=== PATIENT | male | born 1990 | race Caucasian/White ===

== ENCOUNTER 2022-05-13 12:58 | Emergency (ER) | payer OTHER ==
[2022-05-13 13:24] VITALS: BP 140/77; PULSE 70; RESP 18; TEMP 98.4
--- NOTE | 2022-05-13 15:16 | US ---
EXAMINATION TYPE: US scrotum with doppler. Grayscale and color Doppler Duplex imaging performed of wilmer holley scrotum. DATE OF EXAM: 05/13/2022 COMPARISON: NONE CLINICAL HISTORY: pain. Patient states having left teste lump x many years. Within the last 3 months , it has become bigger. At the end of the exam, technologist had patient point to lump area and mult iple images were taken. EXAM MEASUREMENTS: TESTICLES: Right Testicle: 4.8 x 3.7 x 3.1 cm Left Testicle: 4.5 x 3.5 x 3.0 cm EPIDIDYMIS HEAD: Right Epididymis: 1.3 x 0.7 cm Left Epididymis: 1.3 x 0.7 cm Doppler performed to assess for testicular vascularity; good bilateral color flow and waveforms are s een. There is no evidence of testicular torsion. Presence of hydroceles: Small bilateral Presence of varicoceles: no IMPRESSION: Small bilateral pleural effusions without distinct lesion.
--- NOTE | 2022-05-13 16:16 | ED ---
Male Urogenital HPI - General Chief complaint: Urogenital Stated complaint: Bump Time Seen by Provider: 05/13/22 16:04 Source: patient Mode of arrival: ambulatory Limitations: no limitations - Related Data Allergies Allergy/AdvReac Type Severity Reaction Status Date / Time erythromycin base Allergy Rash/Hives Verified 05/13/22 13:21 Penicillins Allergy Rash/Hives Verified 05/13/22 13:21 Review of Systems ROS Statement: Those systems with pertinent positive or pertinent negative responses have been documented in the HPI. ROS Other: All systems not noted in ROS Statement are negative. Past Medical History Past Medical History: No Reported History History of Any Multi-Drug Resistant Organisms: None Reported Past Surgical History: No Surgical Hx Reported Past Psychological History: No Psychological Hx Reported Smoking Status: Former smoker Past Alcohol Use History: None Reported Past Drug Use History: None Reported General Exam Limitations: no limitations Course Vital Signs 05/13/22 13:21 Temperature 98.4 F Pulse Rate 70 Respiratory 18 Rate Blood Pressure 140/77 O2 Sat by Pulse 99 Oximetry Disposition Clinical Impression: Testicular swelling, Hydrocele Disposition: HOME SELF-CARE Condition: Good Instructions (If sedation given, give patient instructions): Testicular Self- examination (ED) Additional Instructions: We did not find any significant abnormalities on your testicular ultrasound. Please follow up with the urologist if any further concerning symptoms occur. Is patient prescribed a controlled substance at d/c from ED?: No Referrals: None,Stated [Primary Care Provider] - 1-2 days Riaz Stevenson MD [STAFF PHYSICIAN] - As Soon As Possible Time of Disposition: 16:14
== END 2022-05-13 16:27 | disposition home or self-care (01) ==
LOC: EC 12:58
DX: N43.3 Hydrocele, unspecified (principal); N50.89 Other specified disorders of the male genital organs; Z87.891 Personal history of nicotine dependence; Z88.0 Allergy status to penicillin; Z88.1 Allergy status to other antibiotic agents
CPT/HCPCS: 76870; 93975

== ENCOUNTER 2022-06-24 05:47 | Day surgery (SDC) | payer OTHER ==
[2022-06-20 12:22] VITALS: BMI 22.1
[~2022-06-24 05:47] MED LIST: ACETAMINOPHEN TAB 500 MG TAB PO PRN; HEPARIN SODIUM,PORCINE/PF 5,000 UNIT/0.5 ML SYRINGE SQ PRN
[2022-06-24] MEDS ORDERED: LACTATED RINGERS 1,000 ML IV SCH (05:58)
[2022-06-24] MEDS ORDERED: DEXAMETHASONE SOD PHOSPHATE 4 MG/ML 1 ML VIAL IV ONE (05:58)
[2022-06-24] MEDS ORDERED: ONDANSETRON 4 MG/2 ML VIAL IVP ONE (05:58)
[2022-06-24] MEDS ORDERED: LIDOCAINE 1% (10MG/ML) FOR IV START INTRADERMA ONE (06:45)
[2022-06-24] MEDS ORDERED: GLYCOPYRROLATE 0.2 MG/ML 2 ML VIAL ONE (07:48)
[2022-06-24] MEDS ORDERED: KETAMINE 10 MG/ML 20 ML VIAL ONE (07:48)
[2022-06-24] MEDS ORDERED: fentaNYL (PF) 50 MCG/ML 2 ML AMP ONE (07:48)
[2022-06-24] MEDS ORDERED: PROPOFOL 10 MG/ML 20 ML VIAL IV ONE (07:48)
[2022-06-24] MEDS ORDERED: NEOSTIGMINE 1 MG/ML 10 ML VIAL ONE (07:48)
[2022-06-24] MEDS ORDERED: LIDOCAINE 4% LTA KIT (4 ML) TOPICAL ONE (07:48)
[2022-06-24] MEDS ORDERED: MIDAZOLAM 2 MG/2 ML VIAL ONE (07:48)
[2022-06-24] MEDS ORDERED: LIDOCAINE 2% INJ 20 MG/ML (2 ML VIAL) ONE (07:48)
[2022-06-24] MEDS ORDERED: SUCCINYLCHOLINE CHLORIDE 200 MG/10 ML VIAL IV ONE (07:48)
[2022-06-24] MEDS ORDERED: ROCURONIUM 10 MG/ML (5 ML VIAL) IV ONE (07:48)
[2022-06-24] MEDS ORDERED: BUPIVACAIN-EPI 0.25%-1:200,000 30 ML VIAL SQ ONE (08:10)
--- NOTE | 2022-06-24 08:47 | P.GSHP ---
History of Present Illness H&P Date: 06/24/22 Chief Complaint: Left inguinal hernia Is a 32-year-old male who's developed a left inguinal hernia. Patient presents today for laparoscopic robotic-assisted repair. Past Medical History Past Medical History: No Reported History History of Any Multi-Drug Resistant Organisms: None Reported Past Surgical History: No Surgical Hx Reported Additional Past Surgical History / Comment(s): tooth extractions Past Anesthesia/Blood Transfusion Reactions: No Reported Reaction Additional Past Anesthesia/Blood Transfusion Reaction / Comment(s): "woke in the middle of tooth extractions" Past Psychological History: No Psychological Hx Reported Smoking Status: Former smoker Past Alcohol Use History: None Reported Past Drug Use History: None Reported - Past Family History Mother Family Medical History: No Reported History Medications and Allergies Home Medications Medication Instructions Recorded Confirmed Type No Known Home Medications 06/20/22 06/24/22 History Allergies Allergy/AdvReac Type Severity Reaction Status Date / Time amoxicillin Allergy Anaphylaxis Verified 06/24/22 06:23 erythromycin base Allergy Anaphylaxis Verified 06/24/22 06:23 Penicillins Allergy Anaphylaxis Verified 06/24/22 06:23 Surgical - Exam Vital Signs Temp Pulse Resp BP Pulse Ox 98.1 F 65 16 117/86 99 06/24/22 06:22 06/24/22 06:22 06/24/22 06:22 06/24/22 06:22 06/24/22 06:22 - General well developed, well nourished, no distress - Eyes PERRL - ENT normal pinna - Neck no masses - Respiratory normal expansion - Cardiovascular Rhythm: regular - Abdomen Abdomen: soft, non tender Hernia: inguinal (Left inguinal hernia) Assessment and Plan Assessment: Left inguinal hernia. We'll perform laparoscopic robotic-assisted repair.
--- NOTE | 2022-06-24 08:49 | P.OP ---
Date of Procedure: 06/24/22 Preoperative Diagnosis: Left inguinal hernia Postoperative Diagnosis: Left inguinal hernia Procedure(s) Performed: Laparoscopic robotic-assisted repair of left inguinal hernia Excision of cord lipoma Transversus abdominis plane block Anesthesia: MARY ANN Surgeon: Gavin Pittman Estimated Blood Loss (ml): 5 Pathology: other (Cord lipoma) Condition: stable Disposition: PACU Description of Procedure: MThe patient's placed on the operating table in the supine position. The patient received general anesthesia. The patient's abdomen was prepped and draped in usual sterile fashion. The skin was anesthetized 1% local Xylocaine at the incision sites. Using an 11 blade a skin incision was made at the umbilicus. The fascia was grasped with a Florencio and then the peritoneal cavity was entered with the Veress needle. Position of the Veress needle was confirmed with a positive drop test. After adequate insufflation a 5 mm trocar was placed into the peritoneal cavity. The Laparoscope was placed the peritoneal cavity. And a robotic 8 mm trocar was placed in the right lateral position and then another 8 mm robotic trochars placed in the left lateral position. The original 5 mm trocar was exchanged for a 12 mm trocar. A four-quadrant transversus abdominis plane block was performed 1% local Xylocaine. The patient was placed in reverse Trendelenburg and then the patient was docked to the robot. Next the peritoneum over top of the hernia was incised and then using blunt and sharp dissection and electrocautery the hernia sac was dissected free from the floor of the inguinal canal. The cord lipoma was dissected free and sent to pathology. The hernia sac was completely reduced into the peritoneal cavity. And then using the Pro aircraft fuselage framer mesh the hernia was repaired. The peritoneum was then sutured with 20V lock suture. The patient was then undocked the robot. The needle was withdrawn from the peritoneal cavity. The umbilical trocar site was closed with 0 Ethibond suture. The skin was closed interrupted 3-0 Monocryl suture. Dermabond dressing was applied. Patient was sent to recovery in stable condition.
[2022-06-24 08:58] VITALS: TEMP 96.9
[2022-06-24] MEDS: HYDROmorphone 0.5 MG/0.5 ML SYRINGE IVP PRN ×3 (09:19→09:44)
[2022-06-24 09:59] VITALS: RESP 16
[2022-06-24 10:16] VITALS: BP 123/70; PULSE 69
== END 2022-06-24 11:45 | disposition home or self-care (01) ==
LOC: OR 05:47
PROVIDERS: ATTEND Surgery
DX: K40.90 Unilateral inguinal hernia, without obstruction or gangrene, not specified as recurrent (principal); Z87.891 Personal history of nicotine dependence; Z98.890 Other specified postprocedural states; Z88.0 Allergy status to penicillin; Z88.1 Allergy status to other antibiotic agents
CPT/HCPCS: 88304; 49650; 55559; C1781; J2250; J0330; J1100; J2710; J0690; J2405; J3010; J2704; J1170; J1644; J2001

== ENCOUNTER 2023-03-03 07:13 | Day surgery (SDC) | payer OTHER ==
[~2023-03-03 07:13] MED LIST changes: +DEXAMETHASONE SOD PHOSPHATE 4 MG/ML 1 ML VIAL IV ONE; +LIDOCAINE 1% (10MG/ML) FOR IV START INTRADERMA PRN; +MIDAZOLAM 2 MG/2 ML VIAL IV PRN; +ONDANSETRON 4 MG/2 ML VIAL IVP ONE
[2023-03-03] MEDS: LACTATED RINGERS 1,000 ML IV SCH ×2 (08:11→10:24)
[2023-03-03] MEDS ORDERED: CLINDAMYCIN 600 MG in DEXTROSE 5% IN WATER 50 ML IVPB STA ×2 (08:34)
[2023-03-03 08:44] LABS: Glucose,Whole Blood 94 mg/dL (70-110)
[2023-03-03] MEDS ORDERED: GLYCOPYRROLATE 0.2 MG/ML 2 ML VIAL ONE (08:48)
[2023-03-03] MEDS ORDERED: ROCURONIUM 10 MG/ML (5 ML VIAL) IV ONE (08:48)
[2023-03-03] MEDS ORDERED: PROPOFOL 10 MG/ML 20 ML VIAL IV ONE (08:48)
[2023-03-03] MEDS ORDERED: KETAMINE 10 MG/ML 20 ML VIAL ONE (08:48)
[2023-03-03] MEDS ORDERED: KETOROLAC 15 MG/ML 1 ML VIAL ONE (08:48)
[2023-03-03] MEDS ORDERED: LIDOCAINE 2% INJ 20 MG/ML (2 ML VIAL) ONE (08:48)
[2023-03-03] MEDS ORDERED: fentaNYL (PF) 50 MCG/ML 2 ML AMP ONE (08:48)
[2023-03-03] MEDS ORDERED: MIDAZOLAM 2 MG/2 ML VIAL ONE (08:48)
[2023-03-03] MEDS ORDERED: NEOSTIGMINE 1 MG/ML 10 ML VIAL ONE (08:48)
[2023-03-03] MEDS ORDERED: SUCCINYLCHOLINE CHLORIDE 200 MG/10 ML VIAL IV ONE (08:48)
[2023-03-03] MEDS ORDERED: BUPIVACAINE (PF) 0.25% 30 ML VIAL SQ ONE (09:08)
--- NOTE | 2023-03-03 09:44 | P.OP ---
Date of Procedure: 03/03/23 Preoperative Diagnosis: Recurrent left inguinal hernia Postoperative Diagnosis: Recurrent left inguinal hernia Procedure(s) Performed: Open repair of left inguinal hernia with Prolene mesh Anesthesia: MARY ANN Surgeon: Gavin Pittman Estimated Blood Loss (ml): 5 Pathology: none sent Condition: stable Disposition: PACU Description of Procedure: DESCRIPTION OF PROCEDURE: The patient was placed in the supine position after receiving adequate anesthesia. Patients groin was prepped and draped in the usual sterile fashion. A standard hernia incision was made and the subcutaneous tissues were divided with electrocautery. The fascia of the external oblique was exposed. A chelsie the fascia was made with #15 blade. The fascia was then opened with pair of Metzenbaum scissors. A Weitlaner retractor was placed in the wound and the cord structures were grasped and dis sected free from the inguinal canal. A rubber Roseline drain was placed around the cord structures. The hernial sac was seen on the anterior-medial portion of the cord and this was dissected free from the cord. The hernia sac was then invaginated to the peritoneal cavity. Using blunt finger dissection, the preperitoneal space was dissected and then the Prolene hernial mesh plug was placed into the prepared space. The inferior leaf was expanded. The superior leaf was secured to the pubic tubercle using 2-0 Prolene suture. The lateral portion of the superior leaf was incised and cords tied and secured to the transversalis fascia using 2-0 Prolene suture. Fascia of the external oblique was then closed using #0 Vicryl suture. The [place] drain was removed. The Scarpas fascia was then closed with 3-0 Vicryl suture and skin was closed with kwabena. The patient tolerated the procedure well.
[2023-03-03 09:51] VITALS: RESP 16; TEMP 97.1
[2023-03-03] MEDS: HYDROmorphone 0.5 MG/0.5 ML SYRINGE IVP PRN ×2 (10:22→10:33)
[2023-03-03 11:59] VITALS: BP 109/60; PULSE 67
== END 2023-03-03 11:55 | disposition home or self-care (01) ==
LOC: OR 07:13
PROVIDERS: ATTEND Surgery
DX: K40.91 Unilateral inguinal hernia, without obstruction or gangrene, recurrent (principal); F12.90 Cannabis use, unspecified, uncomplicated; Z79.899 Other long term (current) drug therapy; Z88.8 Allergy status to other drugs, medicaments and biological substances
CPT/HCPCS: 49520; C1781; J2250; J0330; J1100; J2710; J0690; J2405; J3010; J1885; J2704; J1170; J1644; J2001